=== PATIENT | male | born 1995 | race Caucasian/White ===

== ENCOUNTER 2020-05-29 18:30 | Emergency (ER) | payer SELFPAY ==
[~2020-05-29] VITALS: Ht 182.9 cm; Wt 90.7 kg
[2020-05-29 18:35] VITALS: BP_SYST 165
--- NOTE | 2020-05-29 18:35 | NUR ---
Patient to ER bed 01 to gown for evaluation. Side rails up. Report given to .
--- NOTE | 2020-05-29 18:36 | NUR ---
Pt brought by ambulance,A&Ox4, per EMS pt had a possible tonic-clonic seizure today, pt states he had a seizure when he was a kid, pt respirations even and unlabored, cap refill <3, VSS.
[2020-05-29] MEDS ORDERED: levETIRAcetam 500 MG in NS 100 ML IV ONE (18:45)
--- NOTE | 2020-05-29 18:53 | NUR ---
Pt off the unit for CT
--- NOTE | 2020-05-29 18:58 | NUR ---
ER at bedside examining patient.
--- NOTE | 2020-05-29 19:00 | NUR ---
# 20 gauge angiocath placed to LAC. Use of asceptic technique. Opsite placed over site. Blood return noted. Blood for lab drawn from site. Flushed with 10 cc of normal saline. No evidence of infiltration noted. Patient tolerated well.
--- NOTE | 2020-05-29 19:05 | NUR ---
pt is unable to provide a urine sample at this time
--- NOTE | 2020-05-29 19:18 | NUR ---
Report given to Anali ROBERTSON. Pt is currently in stable condition.
--- NOTE | 2020-05-29 19:23 | NUR ---
pt a&o x4 speaking in full sentences, denies pain. vital signs stable.
[2020-05-29 19:36] LABS: BASOPHILS # (AUTO) 0.1 K/uL (0.0-0.2); BASOPHILS % (AUTO) 0.8 % (0.0-2.0); EOSINOPHILS # (AUTO) 0.3 K/uL (0.0-0.4); EOSINOPHILS % (AUTO) 2.8 % (0.0-4.0); HEMATOCRIT 46.2 % (36-54); HEMOGLOBIN 15.7 g/dL (14.0-18.0); LYMPHOCYTES # (AUTO) 2.1 K/uL (1.0-5.5); LYMPHOCYTES % (AUTO) 23.6 % (20.5-51.5); MEAN CORPUSCULAR HEMOGLOBIN 31 pg (27-31); MEAN CORPUSCULAR HGB CONC 34 % (32-36); MEAN CORPUSCULAR VOLUME 92 fL (79.0-98.0); MONOCYTES # (AUTO) 0.6 K/uL (0.0-1.0); NEUTROPHILS % (AUTO) 65.8 % (40.0-70.0); PLATELET COUNT (AUTO) 348 K/uL (130-430); RED BLOOD CELL COUNT(AUTO) 5.01 MIL/uL (4.2-6.2); RED CELL DISTRIBUTION WIDTH 12.7 % (9.0-15.0); WHITE BLOOD COUNT (AUTO) 9.1 K/uL (4.8-10.8)
[2020-05-29 19:45] LABS: CALCIUM 8.8 mg/dL (8.4-11.0); CREATININE 1.15 mg/dL (0.55-1.30); POTASSIUM 3.3 mmol/L (3.5-5.1)
--- NOTE | 2020-05-29 19:45 | NUR ---
pt using urinal at beside to give urine sample.
[2020-05-29 19:50] LABS: ALBUMIN 4.5 g/dL (3.4-4.8); TOTAL BILIRUBIN 0.3 mg/dL (0.0-1.0)
[2020-05-29 20:24] LABS: CANNABINOID, URINE POSITIVE (NEG <=50)
[2020-05-29 20:25] LABS: BARBITURATE, URINE NEGATIVE (NEG <=200); BENZODIAZEPINE, URINE NEGATIVE (NEG <=150); COCAINE, URINE POSITIVE (NEG <=150); METHAMPHETAMINES SCREEN,URINE NEGATIVE (NEG <=500); OPIATE, URINE NEGATIVE (NEG <=100); PHENCYCLIDINE SCREEN,URINE NEGATIVE (NEG <=25); UR TRICYCLIC ANTIDEPRESSANTS NEGATIVE (NEG <=300); URINE AMPHETAMINE NEGATIVE (NEG <=500); URINE METHADONE NEGATIVE (NEG <=200); URINE OXYCODONE SCREEN NEGATIVE (NEG <=100); URINE PROPOXYPHENE SCREEN NEGATIVE (NEG <=300)
--- NOTE | 2020-05-29 20:28 | NUR ---
pt vital signs stable. pt denies pain. iv medication infusing a prescribed rate. no signs of infiltration.
--- NOTE | 2020-05-29 21:08 | NUR ---
Patient given written and verbal discharge instructions and verbalizes understanding. ER MD discussed with patient the results and treatment provided. Patient in stable condition. ID arm band removed. IV catheter removed intact and dressing applied, no active bleeding. Rx of keppra given. Patient educated on pain management and to follow up with PMD. Pain Scale 0/10. Opportunity for questions provided and answered. Medication side effect fact sheet provided.
[2020-05-29 21:09] VITALS: BP_SYST 131
== END 2020-05-29 21:08 | disposition home or self-care (01) ==
LOC: SED 18:30
DX: G40.909 Epilepsy, unspecified, not intractable, without status epilepticus (principal); F41.9 Anxiety disorder, unspecified; G47.00 Insomnia, unspecified; K21.9 Gastro-esophageal reflux disease without esophagitis; F12.90 Cannabis use, unspecified, uncomplicated
CPT/HCPCS: 36415; 70450; 80053; 80307; 85025; 96365; 99291; J1953

== ENCOUNTER 2021-04-27 20:07 | Emergency (ER) | payer OTHER ==
[~2021-04-27] VITALS: Ht 182.9 cm; Wt 81.6 kg
[2021-04-27 20:13] VITALS: BP_SYST 117
--- NOTE | 2021-04-27 20:17 | NUR ---
Patient to [facility] for evaluation. Side rails up. Report given to MARCELO Coleman.
--- NOTE | 2021-04-27 20:21 | NUR ---
Patient moved to bed 2.
--- NOTE | 2021-04-27 20:22 | NUR ---
Seizure precautions in place. Seizure pads applied to gurney. Side rails up.
--- NOTE | 2021-04-27 20:22 | NUR ---
Patient BIB by family from home. C/O seizure x 1 week. Patient reported, patient had seizure X2 time in the last week, witness reported- seizure ~ 1 minutes. No Hx Seizure. A/O,X4, denies pain, place patient on monitor worker and pulse ox.
--- NOTE | 2021-04-27 20:27 | NUR ---
ER at bedside examining patient.
--- NOTE | 2021-04-27 20:45 | NUR ---
Blood for labwork drawn from applications programmer analyst. Patient tolerated well.
--- NOTE | 2021-04-27 20:52 | NUR ---
Patient transported to radiology via wheel chair , accompanied by RT.
[2021-04-27 20:55] LABS: BASOPHILS # (AUTO) 0.1 K/uL (0.0-0.2); EOSINOPHILS # (AUTO) 0.9 K/uL (0.0-0.4); EOSINOPHILS % (AUTO) 15.8 % (0.0-4.0); HEMATOCRIT 40.3 % (36-54); HEMOGLOBIN 13.7 g/dL (14.0-18.0); LYMPHOCYTES # (AUTO) 2.2 K/uL (1.0-5.5); LYMPHOCYTES % (AUTO) 38.2 % (20.5-51.5); MEAN CORPUSCULAR HEMOGLOBIN 32 pg (27-31); MEAN CORPUSCULAR HGB CONC 34 % (32-36); MEAN CORPUSCULAR VOLUME 93 fL (79.0-98.0); MONOCYTES # (AUTO) 0.6 K/uL (0.0-1.0); MONOCYTES % (AUTO) 9.5 % (1.7-9.3); NEUTROPHILS # (AUTO) 2.1 K/uL (1.8-7.7); NEUTROPHILS % (AUTO) 35.5 % (40.0-70.0); PLATELET COUNT (AUTO) 261 K/uL (130-430); RED BLOOD CELL COUNT(AUTO) 4.34 MIL/uL (4.2-6.2); RED CELL DISTRIBUTION WIDTH 12.7 % (9.0-15.0); WHITE BLOOD COUNT (AUTO) 5.8 K/uL (4.8-10.8)
[2021-04-27 21:06] LABS: CALCIUM 8.7 mg/dL (8.4-11.0); CREATININE 0.73 mg/dL (0.55-1.30); POTASSIUM 3.6 mmol/L (3.5-5.1)
--- NOTE | 2021-04-27 21:06 | NUR ---
Patient came back from CT scan.
[2021-04-27 21:13] LABS: ALBUMIN 3.2 g/dL (3.4-4.8); TOTAL BILIRUBIN 0.4 mg/dL (0.0-1.0)
[2021-04-27 21:36] LABS: BILIRUBIN,URINE NEGATIVE (NEGATIVE); BLOOD, URINE NEGATIVE (NEGATIVE); CLARITY/URINE CLEAR (CLEAR); COLOR,URINE YELLOW (YELLOW); GLUCOSE,URINE NEGATIVE (NEGATIVE); KETONES,URINE NEGATIVE (NEGATIVE); LEUKOCYTE ESTERASE ,URINE NEGATIVE (NEGATIVE); NITRITE, URINE NEGATIVE (NEGATIVE); PROTEIN URINE NEGATIVE (NEGATIVE); UROBILINOGEN,URINE 0.2 (0.2-1.0)
[2021-04-27 21:44] LABS: BARBITURATE, URINE NEGATIVE (NEG <=200)
[2021-04-27 21:45] LABS: BENZODIAZEPINE, URINE POSITIVE (NEG <=150); CANNABINOID, URINE POSITIVE (NEG <=50); COCAINE, URINE NEGATIVE (NEG <=150); METHAMPHETAMINES SCREEN,URINE NEGATIVE (NEG <=500); OPIATE, URINE NEGATIVE (NEG <=100); PHENCYCLIDINE SCREEN,URINE NEGATIVE (NEG <=25); UR TRICYCLIC ANTIDEPRESSANTS NEGATIVE (NEG <=300); URINE AMPHETAMINE NEGATIVE (NEG <=500); URINE METHADONE NEGATIVE (NEG <=200); URINE OXYCODONE SCREEN NEGATIVE (NEG <=100); URINE PROPOXYPHENE SCREEN NEGATIVE (NEG <=300)
[2021-04-27] MEDS ORDERED: LORazepam 2 MG/ML VIAL IVP ONE (21:45)
--- NOTE | 2021-04-27 22:34 | NUR ---
ER at bedside examining patient.
[2021-04-27] MEDS ORDERED: levETIRAcetam 1,000 MG in NS 90 ML IV ONE (23:15)
[2021-04-28 00:10] VITALS: BP_SYST 117
--- NOTE | 2021-04-28 00:10 | NUR ---
Patient given written and verbal discharge instructions and verbalizes understanding. ER MD discussed with patient the results and treatment provided. Patient in stable condition. ID arm band removed. IV catheter removed intact and dressing applied, no active bleeding. Patient educated on pain management and to follow up with PMD. Pain Scale 0/10 Opportunity for questions provided and answered.
== END 2021-04-28 00:10 | disposition home or self-care (01) ==
LOC: SED 20:07
DX: R56.9 Unspecified convulsions (principal); R74.8 Abnormal levels of other serum enzymes; F12.90 Cannabis use, unspecified, uncomplicated
CPT/HCPCS: 36415; 70450; 76376; 80053; 80307; 81003; 85025; 93005; 96365; 96375; 99285; J1953; J2060

== ENCOUNTER 2021-07-16 23:53 | Inpatient (IN) | payer OTHER, SELFPAY ==
[~2021-07-16] VITALS: Ht 182.9 cm; Wt 81.6 kg
[2021-07-16 23:59] VITALS: BP_SYST 126
[2021-07-17] MEDS ORDERED: LORazepam 2 MG/ML VIAL IVP ONE (01:00)
[2021-07-17] MEDS ORDERED: DIPHENHYDRAMINE INJ 50 MG/ML VIAL IVP ONE (01:00)
[2021-07-17] MEDS ORDERED: NACL 0.9% 1,000 ML IV ONE (01:00)
[2021-07-17 01:43] LABS: BILIRUBIN,URINE NEGATIVE (NEGATIVE); BLOOD, URINE NEGATIVE (NEGATIVE); CLARITY/URINE CLEAR (CLEAR); COLOR,URINE YELLOW (YELLOW); GLUCOSE,URINE 3+ (NEGATIVE); KETONES,URINE NEGATIVE (NEGATIVE); LEUKOCYTE ESTERASE ,URINE NEGATIVE (NEGATIVE); NITRITE, URINE NEGATIVE (NEGATIVE); PROTEIN URINE NEGATIVE (NEGATIVE); UROBILINOGEN,URINE 0.2 (0.2-1.0)
[2021-07-17 01:58] LABS: BARBITURATE, URINE NEGATIVE (NEG <=200); BENZODIAZEPINE, URINE POSITIVE (NEG <=150); METHAMPHETAMINES SCREEN,URINE POSITIVE (NEG <=500); URINE AMPHETAMINE POSITIVE (NEG <=500); URINE METHADONE NEGATIVE (NEG <=200)
[2021-07-17 01:59] LABS: CANNABINOID, URINE POSITIVE (NEG <=50); COCAINE, URINE NEGATIVE (NEG <=150); OPIATE, URINE NEGATIVE (NEG <=100); PHENCYCLIDINE SCREEN,URINE NEGATIVE (NEG <=25); UR TRICYCLIC ANTIDEPRESSANTS NEGATIVE (NEG <=300); URINE OXYCODONE SCREEN NEGATIVE (NEG <=100); URINE PROPOXYPHENE SCREEN NEGATIVE (NEG <=300)
[2021-07-17 02:21] LABS: BASOPHILS % (AUTO) 0.2 % (0.0-2.0); EOSINOPHILS % (AUTO) 0.1 % (0.0-4.0); HEMATOCRIT 34.3 % (36-54); HEMOGLOBIN 11.7 g/dL (14.0-18.0); LYMPHOCYTES # (AUTO) 0.9 K/uL (1.0-5.5); LYMPHOCYTES % (AUTO) 3.8 % (20.5-51.5); MEAN CORPUSCULAR HEMOGLOBIN 32 pg (27-31); MEAN CORPUSCULAR HGB CONC 34 % (32-36); MEAN CORPUSCULAR VOLUME 93 fL (79.0-98.0); MONOCYTES # (AUTO) 0.9 K/uL (0.0-1.0); MONOCYTES % (AUTO) 3.6 % (1.7-9.3); NEUTROPHILS # (AUTO) 21.9 K/uL (1.8-7.7); NEUTROPHILS % (AUTO) 92.3 % (40.0-70.0); PLATELET COUNT (AUTO) 233 K/uL (130-430); RED BLOOD CELL COUNT(AUTO) 3.69 MIL/uL (4.2-6.2); RED CELL DISTRIBUTION WIDTH 12.9 % (9.0-15.0); WHITE BLOOD COUNT (AUTO) 23.7 K/uL (4.8-10.8)
[2021-07-17 02:30] LABS: ANION GAP 10 (5-15); CALCIUM 7.6 mg/dL (8.4-11.0); CHLORIDE 107 mmol/L (98-107); CREATININE 1.23 mg/dL (0.55-1.30); GLUCOSE 110 mg/dL (70-99); POTASSIUM 3.6 mmol/L (3.5-5.1); SODIUM SERUM 143 mmol/L (136-145); UREA NITROGEN, BLOOD 12 mg/dL (8-21)
[2021-07-17 02:33] LABS: BACTERIA,URINE FEW /HPF (None Seen); RBC,URINE 0-3 /HPF (0-3); WBC,URINE 0-3 /HPF (0-3)
[2021-07-17 02:34] LABS: GFR AFRICAN AMERICAN 90 mL/min (>90)
[2021-07-17 02:41] LABS: PROTHROMBIN TIME 10.3 SECS (9.5-12.5)
[2021-07-17 02:46] LABS: ALANINE AMINOTRANSFERASE 23 U/L (12-78); ALBUMIN 3.2 g/dL (3.4-4.8); ASPARTATE AMINOTRANSFERASE 17 U/L (10-37); TOTAL BILIRUBIN 0.1 mg/dL (0.0-1.0)
[2021-07-17 02:50] LABS: ACETAMINOPHEN < 1 ug/mL (1-30); ALCOHOL, BLOOD < 3 mg/dL (<10)
[2021-07-17] MEDS ORDERED: ASPIRIN 81 MG TAB.CHEW PO ONE (03:15)
[2021-07-17] MEDS ORDERED: LEVOFLOXACIN IN DEXTROSE 5 % 100 ML IV ONE (07:00)
[2021-07-17] MEDS ORDERED: SERT50TA PO (08:27)
[2021-07-17 11:00] VITALS: BP_SYST 140
[2021-07-17] MEDS ORDERED: ATORVASTATIN 20 MG TABLET PO ONE (12:15)
[2021-07-17] MEDS ORDERED: DOXE50CA4 PO (13:30)
[2021-07-17] MEDS ORDERED: ONDANSETRON HCL 4 MG/2 ML VIAL IVP PRN (13:30)
[2021-07-17] MEDS ORDERED: ACETAMINOPHEN 325 MG TABLET PO PRN (13:30)
[2021-07-17] MEDS ORDERED: LEVE750T4 PO (13:30)
[2021-07-17] MEDS ORDERED: HYDROcodone/ACETAMIN 5-325 MG TAB (NORCO/ VICODIN) PO PRN (13:30)
[2021-07-17] MEDS ORDERED: HYDROcodone/ACETAMIN 10-325 MG TAB PO PRN (13:30)
[2021-07-17] MEDS ORDERED: LORazepam 2 MG/ML VIAL IVP PRN (13:30)
[2021-07-17] MEDS ORDERED: NALOXONE HCL 0.4 MG/ML AMP (NARCAN) IVP PRN ×2 (13:30)
[2021-07-17] MEDS ORDERED: LEVOFLOXACIN IN DEXTROSE 5 % 100 ML IV SCH (14:00)
[2021-07-17] MEDS: NORMAL SALINE 5 ML DISP.SYRIN IVF SCH ×2 (14:25→20:51)
[2021-07-17] MEDS ORDERED: IOHEXOL 350 mgI/mL, 150 ML INFUS..BTL IV ONE (17:28)
[2021-07-17 20:00] VITALS: BP_SYST 130
[2021-07-18] VITALS: BP_SYST 128
[2021-07-18] MEDS: NORMAL SALINE 5 ML DISP.SYRIN IVF SCH ×2 (05:26→14:02)
[2021-07-18 06:47] LABS: BASOPHILS # (AUTO) 0.1 K/uL (0.0-0.2); BASOPHILS % (AUTO) 0.5 % (0.0-2.0); EOSINOPHILS # (AUTO) 1.4 K/uL (0.0-0.4); EOSINOPHILS % (AUTO) 12.5 % (0.0-4.0); HEMATOCRIT 38.6 % (36-54); HEMOGLOBIN 13.4 g/dL (14.0-18.0); LYMPHOCYTES # (AUTO) 2.6 K/uL (1.0-5.5); LYMPHOCYTES % (AUTO) 23.3 % (20.5-51.5); MEAN CORPUSCULAR HEMOGLOBIN 32 pg (27-31); MEAN CORPUSCULAR HGB CONC 35 % (32-36); MEAN CORPUSCULAR VOLUME 91 fL (79.0-98.0); MONOCYTES # (AUTO) 0.7 K/uL (0.0-1.0); MONOCYTES % (AUTO) 6.4 % (1.7-9.3); NEUTROPHILS # (AUTO) 6.3 K/uL (1.8-7.7); NEUTROPHILS % (AUTO) 57.3 % (40.0-70.0); PLATELET COUNT (AUTO) 235 K/uL (130-430); RED BLOOD CELL COUNT(AUTO) 4.23 MIL/uL (4.2-6.2); RED CELL DISTRIBUTION WIDTH 12.6 % (9.0-15.0)
[2021-07-18 07:25] LABS: CALCIUM 8.6 mg/dL (8.4-11.0); CREATININE 0.7 mg/dL (0.55-1.30); POTASSIUM 3.2 mmol/L (3.5-5.1)
[2021-07-18 07:45] VITALS: BP_SYST 128
[2021-07-18] MEDS ORDERED: ATORVASTATIN 20 MG TABLET PO SCH (09:00)
[2021-07-18] MEDS ORDERED: SERTRALINE HCL 50 MG TABLET PO SCH (09:00)
[2021-07-18 11:09] VITALS: BP_SYST 121
[2021-07-18] MEDS ORDERED: LEVO500T89 PO (11:24)
[2021-07-18 13:26] VITALS: BP_SYST 119
[2021-07-18 14:08] VITALS: BP_SYST 119
[2021-07-18] MEDS ORDERED: LEVOFLOXACIN IN DEXTROSE 5 % 100 ML IV SCH (15:00)
== END 2021-07-18 15:30 | disposition home or self-care (01) | DRG 871 ==
LOC: SED 23:53 → STU 07-17 07:24
PROVIDERS: ADMIT Preventive Medicine Preventive Medicine/Occupational Environmental Medicine; ATTEND Preventive Medicine Preventive Medicine/Occupational Environmental Medicine
DX: A41.9 Sepsis, unspecified organism (principal); J18.9 Pneumonia, unspecified organism; I21.A1 Myocardial infarction type 2; E44.0 Moderate protein-calorie malnutrition; M62.82 Rhabdomyolysis; N39.0 Urinary tract infection, site not specified; T50.911A Poisoning by multiple unspecified drugs, medicaments and biological substances, accidental (unintentional), initial encounter; F32.9 Major depressive disorder, single episode, unspecified; D64.9 Anemia, unspecified; E83.52 Hypercalcemia; R73.9 Hyperglycemia, unspecified; Z20.822 Contact with and (suspected) exposure to COVID-19; E88.09 Other disorders of plasma-protein metabolism, not elsewhere classified; F12.90 Cannabis use, unspecified, uncomplicated; E87.6 Hypokalemia; Z68.24 Body mass index [BMI] 24.0-24.9, adult; Y92.89 Other specified places as the place of occurrence of the external cause
CPT/HCPCS: 36415; 71045; 71275; 76376; 80048; 80053; 80307; 81000; 83036; 83605; 84484; 85025; 85610-TC; 85730-TC; 87040-TC; 93005; 93306; 96360; 99285; G0378; G0480; G0481; G0482; J1956; Q9967

== ENCOUNTER 2021-08-05 21:09 | Emergency (ER) | payer SELFPAY ==
[~2021-08-05] VITALS: Ht 182.9 cm; Wt 77.1 kg
[~2021-08-05 21:09] MED LIST: DOXE50CA4 PO; LEVE750T4 PO; LEVO500T89 PO; SERT50TA PO
[2021-08-05 21:16] VITALS: BP_SYST 138
[2021-08-05] MEDS ORDERED: NALO4SPR NS (23:28)
[2021-08-05 23:45] VITALS: BP_SYST 137
== END 2021-08-05 23:45 | disposition home or self-care (01) ==
LOC: SED 21:09
DX: F12.929 Cannabis use, unspecified with intoxication, unspecified (principal); F11.129 Opioid abuse with intoxication, unspecified; F41.9 Anxiety disorder, unspecified; Z79.899 Other long term (current) drug therapy
CPT/HCPCS: 82962; 93005; 99291

== ENCOUNTER 2021-09-11 17:08 | Emergency (ER) | payer SELFPAY ==
[~2021-09-11] VITALS: Ht 182.9 cm; Wt 83.9 kg
[~2021-09-11 17:08] MED LIST changes: +NALO4SPR NS
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
[2021-09-11 17:50] VITALS: BP_SYST 144
--- NOTE | 2021-09-11 17:50 | NUR ---
Placed in room 5 . Placed on ekg monitor tech, blood pressure machine and pulse oximeter. To gown for exam. Side rails up.
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
--- NOTE | 2021-09-11 18:09 | NUR ---
ER at bedside examining patient.
--- NOTE | 2021-09-11 18:22 | NUR ---
Blood collected and sent to lab.
--- NOTE | 2021-09-11 18:25 | NUR ---
Patient transported to radiology via wheelchair, accompanied by tech.
--- NOTE | 2021-09-11 18:26 | NUR ---
Urine collected and sent to lab.
--- NOTE | 2021-09-11 18:31 | NUR ---
Pt back from CT reattached to monitor.
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
[2021-09-11 18:42] LABS: BASOPHILS # (AUTO) 0.1 K/uL (0.0-0.2); BASOPHILS % (AUTO) 0.5 % (0.0-2.0); EOSINOPHILS # (AUTO) 0.7 K/uL (0.0-0.4); EOSINOPHILS % (AUTO) 5.4 % (0.0-4.0); HEMATOCRIT 43.2 % (36-54); HEMOGLOBIN 14.5 g/dL (14.0-18.0); LYMPHOCYTES # (AUTO) 1.6 K/uL (1.0-5.5); LYMPHOCYTES % (AUTO) 12.3 % (20.5-51.5); MEAN CORPUSCULAR HEMOGLOBIN 31 pg (27-31); MEAN CORPUSCULAR HGB CONC 34 % (32-36); MEAN CORPUSCULAR VOLUME 92 fL (79.0-98.0); MONOCYTES # (AUTO) 0.6 K/uL (0.0-1.0); MONOCYTES % (AUTO) 5.1 % (1.7-9.3); NEUTROPHILS # (AUTO) 9.7 K/uL (1.8-7.7); NEUTROPHILS % (AUTO) 76.7 % (40.0-70.0); PLATELET COUNT (AUTO) 237 K/uL (130-430); RED BLOOD CELL COUNT(AUTO) 4.71 MIL/uL (4.2-6.2); RED CELL DISTRIBUTION WIDTH 12.8 % (9.0-15.0); WHITE BLOOD COUNT (AUTO) 12.7 K/uL (4.8-10.8)
[2021-09-11] MEDS ORDERED: NACL 0.9% 1,000 ML IV ONE (18:45)
[2021-09-11 18:52] LABS: CANNABINOID, URINE POSITIVE (NEG <=50)
[2021-09-11 18:53] LABS: BARBITURATE, URINE NEGATIVE (NEG <=200); BENZODIAZEPINE, URINE POSITIVE (NEG <=150); METHAMPHETAMINES SCREEN,URINE NEGATIVE (NEG <=500); UR TRICYCLIC ANTIDEPRESSANTS POSITIVE (NEG <=300); URINE AMPHETAMINE NEGATIVE (NEG <=500)
[2021-09-11 18:54] LABS: COCAINE, URINE NEGATIVE (NEG <=150); OPIATE, URINE NEGATIVE (NEG <=100); PHENCYCLIDINE SCREEN,URINE NEGATIVE (NEG <=25); URINE METHADONE NEGATIVE (NEG <=200); URINE OXYCODONE SCREEN NEGATIVE (NEG <=100); URINE PROPOXYPHENE SCREEN NEGATIVE (NEG <=300)
[2021-09-11 19:44] LABS: ALANINE AMINOTRANSFERASE 36 U/L (12-78); ALBUMIN 4.3 g/dL (3.4-4.8); ASPARTATE AMINOTRANSFERASE 23 U/L (10-37); CALCIUM 8.7 mg/dL (8.4-11.0); CREATININE 0.85 mg/dL (0.55-1.30); GLUCOSE 85 mg/dL (70-99); TOTAL BILIRUBIN 0.2 mg/dL (0.0-1.0); UREA NITROGEN, BLOOD 16 mg/dL (8-21)
[2021-09-11 19:47] LABS: ACETAMINOPHEN < 1 ug/mL (1-30); GFR AFRICAN AMERICAN 138 mL/min (>90)
--- NOTE | 2021-09-11 19:52 | NUR ---
Care endorsed to Emilio ROBERTSON.
[2021-09-11 20:01] LABS: ANION GAP 5 (5-15); CHLORIDE 100 mmol/L (98-107); POTASSIUM 3.6 mmol/L (3.5-5.1); SODIUM SERUM 137 mmol/L (136-145)
[2021-09-11] MEDS ORDERED: [UNRECOGNIZED DRUG - CODE] PO (21:26)
[2021-09-11 21:30] VITALS: BP_SYST 137
--- NOTE | 2021-09-11 21:30 | NUR ---
Patient resting quietly. No acute distress noted. Vital signs within normal range. no active sz noted. bed to low position sr up, continue to monitor.
--- NOTE | 2021-09-11 22:08 | NUR ---
Patient given written and verbal discharge instructions and verbalizes understanding. ER MD discussed with patient the results and treatment provided. Patient in stable condition. ID arm band removed. IV catheter removed intact and dressing applied, no active bleeding. Rx of keppra given. Patient educated on pain management and to follow up with PMD. Pain Scale 0. Opportunity for questions provided and answered. Medication side effect fact sheet provided.
== END 2021-09-11 22:08 | disposition home or self-care (01) ==
LOC: SED 17:08
DX: G40.909 Epilepsy, unspecified, not intractable, without status epilepticus (principal); T50.995A Adverse effect of other drugs, medicaments and biological substances, initial encounter; F12.90 Cannabis use, unspecified, uncomplicated; Z79.899 Other long term (current) drug therapy; Y92.89 Other specified places as the place of occurrence of the external cause
CPT/HCPCS: 36415; 70450; 76376; 80053; 80307; 83735; 84100; 85025; 93005; 96360; 99285; G0480; J7030; G0481